=== PATIENT | male | born 1995 | race Asian ===

== ENCOUNTER 2019-06-17 19:58 | Emergency (ER) | payer SELFPAY ==
[~2019-06-17] VITALS: Ht 175.3 cm; Wt 129.3 kg
[2019-06-17 20:58] VITALS: Ht 175.3 cm; Wt 129.3 kg
[2019-06-17 23:52] VITALS: BP 130/103
== END 2019-06-17 23:52 | disposition home or self-care (01) ==
LOC: ED 19:58
DX: J11.1 Influenza due to unidentified influenza virus with other respiratory manifestations (principal)
CPT/HCPCS: 87804

== ENCOUNTER 2020-06-26 02:50 | Emergency (ER) | payer SELFPAY ==
[~2020-06-26] VITALS: Ht 175.3 cm; Wt 76.7 kg
[2020-06-26 03:02] VITALS: BP 153/108; Ht 175.3 cm; Wt 76.7 kg
== END 2020-06-26 03:56 | disposition left against medical advice (07) ==
LOC: ED 02:50
DX: R11.10 Vomiting, unspecified (principal)